=== PATIENT | female | born 1995 | race Caucasian/White ===

== ENCOUNTER 2016-06-13 20:37 | Emergency (ER) | payer OTHER ==
[2016-06-13 20:49] VITALS: BP 104/63; PULSE 76; TEMP 98.6; BMI 18.8
--- NOTE | 2016-06-13 20:53 | PDOC ---
History of Present Illness - General History Source: Patient Exam Limitations: No Limitations - History of Present Illness Initial Comments: 06/13/16 20:59 A portion of this note was documented by scribe services under my direction. I have reviewed the details of the note, within reason, and agree with the documentation. The case summary and management plan written by me. Assessment and plan: This is a 21-year-old female who comes in complaining of a lump in her right groin area. Patient otherwise is healthy denies any fevers or chills. Denies any abdominal pain or pelvic pain. Denies any vaginal discharge at this time. Patient said that she had a little bit of spotting a few days ago but none at this time. On exam patient did have a small right inguinal lymph node that was freely mobile and minimally tender. Patient was recommended that she follow-up with either her OB or [facility] if she couldn't get an appointment with her OB within the next week. Patient was told to take Tylenol or Motrin if needed for the pain. <Peter Araujo I - Last Filed: 06/13/16 20:59> - General History Source: Patient Exam Limitations: No Limitations - History of Present Illness Initial Comments: 06/13/16 21:03 The patient is a 21 year old female, with no significant past medical history who presents to the emergency department with a bump on her right pelvis area. She reports the bump is painful to touch. She reports having vaginal discharge about a week ago. She also notes abnormal bleeding the last week. She denies seeing her INTER COM SERVICER recently with her last pelvic exam over a year ago. She denies any [id number]-[id number] medication for pain relief. She denies recent fevers, chills, headache or dizziness. She denies recent nausea, vomit, diarrhea or constipation. She denies recent dysuria, frequency, urgency or hematuria. She denies recent chest pain or shortness of breath. PAST MEDICAL HISTORY: See HPI PAST SURGICAL HISTORY: No significant history. FAMILY HISTORY: No pertinent history. SOCIAL HISTORY: Patient lives with family and is employed. MEDICATIONS: Reviewed. ALLERGIES: As per nursing notes. ROS General: No fevers or chills, no weakness, no weight loss HEENT: No change in vision. No sore throat. No ear pain CardioVascular: No chest pain or shortness of breath Respiratory:No cough, or wheezing. Gastrointestinal: No nausea, vomiting, diarrhea or constipation. No rectal bleeding Genitourinary: No dysuria, hematuria, or frequency Musculoskeletal: +bump right pelvis area. No joint or muscle pain or swelling Neurologic: No headache, vertigo, dizziness or loss of consciousness Psychiatric: No depression Skin: No rashes or easy bruising Endocrine: no increased thirst or abnormal weight change Allergic: no skin or latex allergy All other systems reviewed and normal Exam: GENERAL: The patient is awake, alert, and fully oriented, in no acute distress. HEAD: Normal with no signs of trauma. EYES: Pupils equal, round and reactive to light, extraocular movements intact, sclera anicteric, conjunctiva clear. PELVIC: Small minimally tender lymph node right inguinal area approximately .5 cm in diameter also nontender small lymph node left lingual area approximately the same size. No erythema or any other lesions of the external genitalia. EXTREMITIES: Normal range of motion, no edema. NEUROLOGICAL: Normal speech, normal gait. PSYCH: Normal mood, normal affect. SKIN: Warm, Dry, normal turgor, no rashes or lesions noted. <Demetrio Laird - Last Filed: 06/13/16 21:03> - General Chief Complaint: Pain Stated Complaint: "I HAVE A BUMP ON MY R PELVIS AREA" Time Seen by Provider: 06/13/16 20:46 Past History - Psycho/Social/Smoking Cessation Hx Anxiety: No Suicidal Ideation: No Smoking History: Unknown if ever smoked Have you smoked in the past 12 months: No Number of Cigarettes Smoked Daily: 0 Information on smoking cessation initiated: No Hx Alcohol Use: No Drug/Substance Use Hx: No Substance Use Type: None <Peter Araujo I - Last Filed: 06/13/16 20:59> <Demetrio Laird - Last Filed: 06/13/16 21:03> - Past Medical History Allergies/Adverse Reactions: Allergies Allergy/AdvReac Type Severity Reaction Status Date / Time No Known Allergies Allergy Unverified 06/13/16 20:41 Home Medications: Ambulatory Orders NK [No Known Home Medication] 06/13/16 *Physical Exam - Vital Signs Last Vital Signs Temp Pulse Resp BP Pulse Ox 98.6 F 76 14 104/63 100 06/13/16 20:43 06/13/16 20:43 06/13/16 20:43 06/13/16 20:43 06/13/16 20:43 <Peter Araujo I - Last Filed: 06/13/16 20:59> - Vital Signs Last Vital Signs Temp Pulse Resp BP Pulse Ox 98.6 F 76 14 104/63 100 06/13/16 20:43 06/13/16 20:43 06/13/16 20:43 06/13/16 20:43 06/13/16 20:43 <Demetrio Laird - Last Filed: 06/13/16 21:03> *DC/Admit/Observation/Transfer - Discharge Dispostion Admit: No <Peter Araujo I - Last Filed: 06/13/16 20:59> - Attestations Scribe Attestion: 06/13/16 20:53 Documentation prepared by Demetrio Laird, acting as vp medical for Peter Araujo MD. <Demetrio Laird - Last Filed: 06/13/16 21:03> Diagnosis at time of Disposition: Inguinal lymphadenopathy - Discharge Dispostion Disposition: HOME Condition at time of disposition: Good - Patient Instructions Additional Instructions: Tylenol or Motrin as needed for the pain. Follow-up with your OB early next week if you're unable to get an appointment for early next week call [facility] tomorrow and get an appointment and see them instead. Return to the emergency department immediately with ANY new, persistent or worsening symptoms. Continue any medications as previously prescribed by your physician. You should follow up with your primary doctor as soon as possible regarding today's emergency department visit. . Please make sure your doctor reviews the results of your emergency evaluation. Thank you for coming to the Emergency Department today for your care. It was a pleasure to see you today. Please note that your evaluation is INCOMPLETE until you follow-up with your doctor.
== END 2016-06-13 21:04 | disposition home or self-care (01) ==
LOC: FER 20:37
DX: R59.0 Localized enlarged lymph nodes (principal)
CPT/HCPCS: 99282-25

== ENCOUNTER 2018-08-05 09:28 | Emergency (ER) | payer OTHER ==
[2018-08-05 09:41] VITALS: BP 100/60; PULSE 57; TEMP 98.9; BMI 19.2
--- NOTE | 2018-08-05 09:59 | PDOC ---
History of Present Illness <DanieltraviselverDeondre - Last Filed: 08/05/18 10:45> - General History Source: Patient Exam Limitations: No Limitations - History of Present Illness Initial Comments: 08/05/18 09:50 23 year old female with PMH genital herpes (2 outbreaks since diagnosis), chlamydia x2 (treated x2), ovarian cysts presented to ED for STI testing after having unprotected sex x3 days ago. Pt denied discharge, vaginal bleeding, pelvic pain, pain with intercourse, fever, chills, nausea, vomiting. Pt admitted to intermittent left pelvic/LLQ pain x3 weeks. She stated this pain feels similar to past pain associated with ovarian cysts. She stated she was evaluated by her OBGYN x3 weeks ago for the left sided pain, was told UA was negative. Allergies: NKDA <Jolie Deshpande - Last Filed: 08/07/18 09:50> - General Chief Complaint: Pain Stated Complaint: LOWER ABDOMINAL CRAMPING Time Seen by Provider: 08/05/18 09:31 Past History <EsteeDeondre - Last Filed: 08/05/18 10:45> - Past Medical History COPD: No Other medical history: RUPTURED OVARIAN CYST - Surgical History Appendectomy: Yes - Suicide/Smoking/Psychosocial Hx Smoking History: Never smoked Have you smoked in the past 12 months: No Number of Cigarettes Smoked Daily: 0 Hx Alcohol Use: No Drug/Substance Use Hx: No Substance Use Type: None <CharleeJolie - Last Filed: 08/07/18 09:50> - Past Medical History Allergies/Adverse Reactions: Allergies Allergy/AdvReac Type Severity Reaction Status Date / Time No Known Allergies Allergy Verified 08/05/18 09:29 Home Medications: Ambulatory Orders NK [No Known Home Medication] 06/13/16 Review of Systems - Review of Systems Able to Perform ROS?: Yes Comments:: 08/05/18 09:53 General: denied fever, chills, generalized weakness. HEENT: denied sore throat, rhinorrhea, ear pain. Heart: denied chest pain, palpitations, syncope, diaphoresis. Respiratory: denied shortness of breath, cough, sputum production, hemoptysis. Abdomen: admitted to abdominal pain. denied nausea, vomiting, diarrhea, constipation, blood in stool. : denied dysuria, increased urinary frequency, hematuria, urinary incontinence , flank pain. Back: denied back pain. Musculoskeletal: denied joint pain, muscle pain, joint swelling. Neurological: denied headache, dizziness, numbness, tingling, weakness. Skin: denied rash, laceration, abrasion. <Charlee,Jolie - Last Filed: 08/07/18 09:50> *Physical Exam - Vital Signs Last Vital Signs Temp Pulse Resp BP Pulse Ox 98.9 F 57 L 18 100/60 100 08/05/18 09:29 08/05/18 09:29 08/05/18 09:29 08/05/18 09:29 08/05/18 09:29 <Deondre Fontanez - Last Filed: 08/05/18 10:45> - Vital Signs Last Vital Signs Temp Pulse Resp BP Pulse Ox 98.9 F 57 L 18 100/60 100 08/05/18 09:29 08/05/18 09:29 08/05/18 09:29 08/05/18 09:29 08/05/18 09:29 - Physical Exam Comments: 08/05/18 09:59 Constitutional: Well-nourished, Well-developed, appearing stated age. HEENT: head is normocephalic, atraumatic. EOMI. PERRLA. Neck: supple. Full ROM. Heart: regular rhythm. no murmurs, rubs or gallops. Lungs: clear to auscultation bilaterally. no crackles, rhonchi or wheezing. no stridor. Abdomen: soft, nontender. normal bowel sounds. no rebound, guarding, masses. Extremities: peripheral pulses intact. no lower extremity edema. Neurological: CN 2-12 grossly intact. moves all four extremities. Psych: awake, alert, oriented x3. follows commands. answers questions appropriately. Pelvic: normal external genitalia. copious white discharge. inflammed cervix. cervical os closed. no CMT. no adnexal tenderness bilaterally. <Matthew Deshpandeyla - Last Filed: 08/07/18 09:50> ED Treatment Course - ADDITIONAL ORDERS Additional order review: Laboratory Results 08/05/18 09:44 Urine Color Yellow Urine Appearance Clear Urine pH 5.5 Urine Protein Negative Urine Glucose (UA) Negative Urine Ketones Negative Urine Blood Negative Urine Nitrite Negative Urine Bilirubin Negative Urine Urobilinogen 0.2 Ur Leukocyte Esterase Negative Urine HCG, Qual Negative - Medications Given in the ED: ED Medications Discontinued Medications Generic Name Dose Route Start Last Admin Trade Name Comfort PRN Reason Stop Dose Admin Azithromycin 1,000 mg 08/05/18 10:16 08/05/18 10:44 Zithromax PO 08/05/18 10:17 1,000 mg ONCE ONE Administration Ceftriaxone Sodium 250 mg 08/05/18 10:14 08/05/18 10:44 Rocephin - IM 08/05/18 10:15 250 mg ONCE ONE Administration Fluconazole 150 mg 08/05/18 10:31 08/05/18 10:44 Diflucan - PO 08/05/18 10:32 150 mg ONCE ONE Administration <Deondre Fontanez - Last Filed: 08/05/18 10:45> Medical Decision Making - Medical Decision Making 08/05/18 10:00 23 year old female with above PMH presented to ED for testing for STI's after having unprotected sex. She also complained of LLQ/adnexal pain x3 weeks. Initial Vital Signs Temp Pulse Resp BP Pulse Ox 98.9 F 57 L 18 100/60 100 08/05/18 09:29 08/05/18 09:29 08/05/18 09:29 08/05/18 09:29 08/05/18 09:29 Afebrile. Mild bradycardia. No tachypnea. Normal BP for age. No hypoxia on room air. Labs ordered: GC/Chlamydia NAAT, HIV, Hepatitis Panel, RPR Medications ordered: Ceftriaxone 250 mg IM once, Azithromycin 1g PO once, Diflucan 150 mg PO 08/05/18 10:30 Pt originally requested blood testing, then later declined. HIV/RPR/Hepatitis panel canceled. Pt informed seroconversaion may take up to six months and advised to follow up with testing outpatient. Urine Test Results Urine Color Yellow 08/05/18 09:44 Urine Appearance Clear 08/05/18 09:44 Urine pH 5.5 (4.5-8) 08/05/18 09:44 Urine Protein Negative (NEGATIVE) 08/05/18 09:44 Urine Glucose (UA) Negative (NEGATIVE) 08/05/18 09:44 Urine Ketones Negative (NEGATIVE) 08/05/18 09:44 Urine Blood Negative (NEGATIVE) 08/05/18 09:44 Urine Nitrite Negative (NEGATIVE) 08/05/18 09:44 Urine Bilirubin Negative (NEGATIVE) 08/05/18 09:44 Ur Leukocyte Esterase Negative (NEGATIVE) 08/05/18 09:44 No evidence of UTI. Urine testing negative. Call back placed for pt to be informed of GC/Chlamydia results. Pt discharged. <Jolie Deshpande - Last Filed: 08/07/18 09:50> *DC/Admit/Observation/Transfer <Deondre Fontanez - Last Filed: 08/05/18 10:45> - Discharge Dispostion Decision to Admit order: No <Jolie Deshpande - Last Filed: 08/07/18 09:50> Diagnosis at time of Disposition: Vaginal carey - Discharge Dispostion Disposition: HOME Condition at time of disposition: Stable - Referrals Referrals: Jacob Acharya MD [Staff Physician] - - Patient Instructions Printed Discharge Instructions: DI for Gonorrhea, DI for Chlamydia, DI for Vaginal Yeast Infection Additional Instructions: Activity as tolerated. Stay hydrated. A urinalysis today showed no urine infection and a negative test. A pelvic exam showed evidence of a yeast infection, which was treated. We sent off gonorrhea and chlamydia cultures, the results will be available in 2-3 days. You were treated for gonorrhea and chlamydia in the emergency department. Tylenol 1000 mg every 8 hours and/or ibuprofen 600 mg every 8 hours as needed for pain. You should follow up with your MANAGER ENGAGEMENT. If your pelvic pain continues, consider an ultrasound. You should follow up with your primary doctor and MANAGER ENGAGEMENT as soon as possible regarding today's emergency department visit. Return to the emergency department for any new or concerning symptoms, particularly worsening pain, fevers or chills, bleeding or discharge. - Post Discharge Activity Forms/Work/School Notes: Back to Work
[2018-08-05 10:05] LABS: HCG,QUALITATIVE URINE Negative
[2018-08-05] MEDS ORDERED: AZITHROMYCIN 500 MG TABLET PO ONE (10:16)
[2018-08-05] MEDS ORDERED: FLUCONAZOLE 50 MG TABLET PO ONE (10:31)
--- NOTE | 2018-08-05 10:32 | PDOC ---
Attending Attestation - Resident Resident Name: Jolie Deshpande - ED Attending Attestation I have performed the following: I have examined & evaluated the patient, The case was reviewed & discussed with the resident, I agree w/resident's findings & plan - HPI HPI: 08/05/18 10:27 Healthy 23-year-old female presents for evaluation of STI. Patient has history of bacterial vaginosis 1 and chlamydia 2, all treated in the past. Also has history of ovarian cysts, LMP /. Patient has had 3 weeks of mild groin/ pelvic discomfort without noticeable discharge or bleeding other than her menses , saw her PCP at the onset of these symptoms and was treated with abx for UTI. Presents today because she had unprotected sex with an acquaintance 3 days ago, has no new symptoms but in the setting of her pelvic pain she presents for STI screening. Denies any sexual abuse or assault, denies any abdominal pain/fever/chills/ dysuria/hematuria/back pain/weight loss/night sweats. - Physicial Exam PE: 08/05/18 10:30 Vital signs normal, afebrile, urine negative Well-appearing, ambulating comfortably Heart is regular, lungs are clear Abdomen is soft/nondistended/nontender. Healed surgical incisional scar along the lower abdomen ( and abdominoplasty) No CVA tenderness Pelvic per resident notable for white discharge, no cmt/adnexal ttp No rash - Medical Decision Making 08/05/18 10:32 23-year-old female for evaluation of STI and the setting of unprotected intercourse, abdominal exam benign with normal vital signs but positive discharge on pelvic exam. Possible yeast infection, will treat empirically for GC/chlamydia. Offered full exposure testing, but patient refused. GC and chlamydia culture sent Urinalysis clear, urine negative No evidence of PID on exam, we'll defer imaging Treat empirically for GC and chlamydia, treat vaginal candidiasis Understands return criteria
[2018-08-05] MEDS ORDERED: FLUCONAZOLE 150 MG TABLET PO ONE (10:37)
[2018-08-05] MEDS ORDERED: AZITHROMYCIN 250 MG TABLET ONE (10:38)
== END 2018-08-05 10:50 | disposition home or self-care (01) ==
LOC: FER 09:28
DX: B37.3 Candidiasis of vulva and vagina (principal); Z87.42 Personal history of other diseases of the female genital tract; N83.209 Unspecified ovarian cyst, unspecified side
CPT/HCPCS: 36415; 81003; 81025; 84703; 87491; 87591; 96372; 99283-25

== ENCOUNTER 2018-10-26 23:52 | Emergency (ER) | payer OTHER | END 2018-10-27 00:32 | disposition home or self-care (01) | LOC: FER 23:52 ==

== ENCOUNTER 2018-12-10 22:08 | Emergency (ER) | payer OTHER ==
[2018-12-10 22:15] VITALS: BP 114/64; PULSE 95; TEMP 99; BMI 20.5
--- NOTE | 2018-12-11 00:32 | PDOC ---
*Physical Exam - Vital Signs Last Vital Signs Temp Pulse Resp BP Pulse Ox 99 F 95 H 18 114/64 98 12/10/18 22:13 12/10/18 22:13 12/10/18 22:13 12/10/18 22:13 12/10/18 22:13 Medical Decision Making - Medical Decision Making 12/11/18 00:31 Patient seen by the advanced practice provider under my direct supervision. Ancillary testing reviewed as necessary. I agree with plan as outlined by the advanced practice provider. *DC/Admit/Observation/Transfer Diagnosis at time of Disposition: Headache Qualifiers: Headache type: other headache syndrome Qualified Code(s): G44.89 - Other headache syndrome - Discharge Dispostion Disposition: HOME Condition at time of disposition: Stable - Referrals Referrals: Farhana Oneil MD [Primary Care Provider] - 2 Days - Patient Instructions Printed Discharge Instructions: DI for Headache Additional Instructions: Thank you for choosing [facility]. It was a pleasure taking care of you. Please follow-up with your eye doctor as you likely need glasses Also recommend you follow-up with your regular doctor in 2 days Return to the Emergency Department if your symptoms worsen or persist, you have fever, vomiting, weakness of extremities (arms and/or legs), changes in vision or walking or other concerning symptoms. - Post Discharge Activity
--- NOTE | 2018-12-11 00:51 | PDOC ---
History of Present Illness - General Chief Complaint: Headache Stated Complaint: PAIN Time Seen by Provider: 12/11/18 00:27 History Source: Patient Exam Limitations: No Limitations Past History - Past Medical History Allergies/Adverse Reactions: Allergies Allergy/AdvReac Type Severity Reaction Status Date / Time No Known Allergies Allergy Verified 10/26/18 23:54 Home Medications: Ambulatory Orders Acyclovir [Zovirax -] 400 mg PO TID #21 tablet 10/27/18 COPD: No - Surgical History Appendectomy: Yes - Suicide/Smoking/Psychosocial Hx Smoking History: Never smoked Have you smoked in the past 12 months: No Number of Cigarettes Smoked Daily: 0 Hx Alcohol Use: No Drug/Substance Use Hx: No Substance Use Type: None *Physical Exam - Vital Signs Last Vital Signs Temp Pulse Resp BP Pulse Ox 99 F 95 H 18 114/64 98 12/10/18 22:13 12/10/18 22:13 12/10/18 22:13 12/10/18 22:13 12/10/18 22:13 - Physical Exam General Appearance: No: Apparent Distress HEENT: positive: EOMI, JENN, Other (no pain on eye movements, eyes not injected , no temporal artery tenderness, vision 20/40 R eye, 20/20 L eye, 20/20 both eyes, vision 20/20 R eye with pinhole ) Neck: positive: Supple Respiratory/Chest: positive: Lungs Clear, Normal Breath Sounds. negative: Respiratory Distress Cardiovascular: positive: Regular Rhythm, Regular Rate, S1, S2. negative: Murmur Neurologic: positive: compensation administrator II-XII NML intact, Fully Oriented, Alert, Normal Mood/ Affect, Motor Strength 5/5. negative: Facial Droop, Sensory Deficit, Confused, Disoriented Medical Decision Making - Medical Decision Making 23 y/o F with no sig pmh presents with intermittent, sharp L temporal GONZALEZ x 5 days. Has not tried taking anything for pain as she does not like pain meds. Nothing makes GONZALEZ better or worse. Currently states, is not having the headache. Also feels her vision has been more blurred. Mentions she does not have good vision and was told by eye doctor in the past that she needs glasses but never got them. Denies vomiting, fever, URI sxs, sob, cp, abd pain, numbness/tingling/ weakness of extremities, dizziness. Patient was concerned as states her aunt and uncle had brain aneurysm and wanted to know if that was cause of symptoms. Currently no GONZALEZ Explained to patient that sxs unlikely related to brain aneurysm Given improvement of vision with pinhole, suspect need for glasses stable for dc 12/11/18 00:46 *DC/Admit/Observation/Transfer Diagnosis at time of Disposition: Headache Qualifiers: Headache type: other headache syndrome Qualified Code(s): G44.89 - Other headache syndrome - Discharge Dispostion Disposition: HOME Condition at time of disposition: Stable Decision to Admit order: No - Referrals Referrals: Farhana Oneil MD [Primary Care Provider] - 2 Days - Patient Instructions Printed Discharge Instructions: DI for Headache Additional Instructions: Thank you for choosing [facility]. It was a pleasure taking care of you. Please follow-up with your eye doctor as you likely need glasses Also recommend you follow-up with your regular doctor in 2 days Return to the Emergency Department if your symptoms worsen or persist, you have fever, vomiting, weakness of extremities (arms and/or legs), changes in vision or walking or other concerning symptoms. - Post Discharge Activity
== END 2018-12-11 01:18 | disposition home or self-care (01) ==
LOC: JER 22:08
DX: G44.89 Other headache syndrome (principal)
CPT/HCPCS: 99281-25

== ENCOUNTER 2024-03-23 03:00 | Inpatient (IN) | payer BC, OTHER ==
[2024-03-23] MEDS: LACTATED RINGERS SOLUTION 1,000 ML IV SCH (04:10)
[2024-03-23 04:55] LABS: INR 0.87 (0.83-1.09); PROTHROMBIN TIME (PATIENT) 10.1 SEC (9.7-13.0)
[2024-03-23 04:57] LABS: POTASSIUM 3.8 mmol/L (3.5-5.1)
[2024-03-23 04:58] LABS: ACTIVATED PTT 25.8 SECONDS (25.2-36.5); CALCIUM 9.4 mg/dL (8.5-10.1)
[2024-03-23 05:00] LABS: BASO % 0.8 % (0-2.0); EOS % 0.5 % (0-4.5); HEMATOCRIT 35.9 % (32.4-45.2); HEMOGLOBIN 11.5 GM/dL (10.7-15.3); LYMPH % 26.8 % (8-40); MCH 25.7 pg (25.7-33.7); MCHC 31.9 g/dl (32.0-36.0); MEAN CELL VOLUME 80.6 fl (80-96); MEAN PLT VOLUME 8.7 fl (7.5-11.1); MONO % 9.1 % (3.8-10.2); NEUT % 62.8 % (42.8-82.8); PLATELET COUNT 248 10^3/uL (134-434); RBC 4.45 M/mm3 (3.60-5.2); RDW 15.2 % (11.6-15.6); WHITE BLOOD COUNT 11.2 K/mm3 (4.0-10.0)
[2024-03-23 05:02] LABS: CREATININE 0.7 mg/dL (0.55-1.3)
[2024-03-23 05:55] LABS: HIV INTERPRETATION NEGATIVE (NEGATIVE)
[2024-03-23 05:59] VITALS: BMI 25.7
[2024-03-23] MEDS: ELECTROLYTE-148 SOLN 1,000 ML IV ONE (08:00)
[2024-03-23] MEDS ORDERED: morphine SULFATE/PF 1 MG/2 ML (2cc Syringe - QUVA) ONE (08:26)
[2024-03-23] MEDS ORDERED: FENTANYL CITRATE/PF 50 MCG/ML VIAL ONE (08:26)
[2024-03-23] MEDS: CITRIC ACID/SODIUM CITRATE 30 ML UNIT-DOSE CUP PO ONE (08:28)
[2024-03-23] MEDS ORDERED: DEXAMETHASONE SOD PHOSPHATE 4 MG/1 ML VIAL ONE (09:16)
[2024-03-23] MEDS ORDERED: KETOROLAC TROMETHAMINE 30 MG/1 ML VIAL ONE (09:16)
[2024-03-23] MEDS ORDERED: OXYTOCIN 10 UNITS/ML VIAL ONE (09:16)
[2024-03-23] MEDS ORDERED: ONDANSETRON 4 MG/2 ML VIAL ONE (09:16)
[2024-03-23] MEDS ORDERED: ONDANSETRON 4 MG/2 ML VIAL IVPB PRN (09:44)
[2024-03-23] MEDS ORDERED: OXYTOCIN 20 UNITS in 0.9% NS 20 UNIT/1,000 ML INFUS.BAG IV ONE (10:07)
[2024-03-23] MEDS: OXYTOCIN 20 UNITS in 0.9% NS 20 UNIT/1,000 ML INFUS.BAG IV SCH (10:08)
[2024-03-23] MEDS ORDERED: ACETAMINOPHEN INJECTION 100 ML ONE (12:14)
[2024-03-23] MEDS: ACETAMINOPHEN 1000 MG/100 ML BAG IVPB SCH (12:15)
[2024-03-23] MEDS: IBUPROFEN 800 MG/8 ML IJ IVPB SCH (17:54)
[2024-03-23] MEDS: SENNOSIDES/DOCUSATE COMBO (SENNA PLUS) TABLET (UD) PO SCH (22:05)
[2024-03-24] MEDS: ACETAMINOPHEN 1000 MG/100 ML BAG IVPB SCH (00:20)
[2024-03-24] MEDS: PRENATAL VITAMINS W/ FOLIC ACID TABLET (FP) PO SCH (00:40)
[2024-03-24 01:54] VITALS: RESP 18
[2024-03-24 07:12] LABS: BASO % 0.3 % (0-2.0); EOS % 0.7 % (0-4.5); HEMATOCRIT 34.2 % (32.4-45.2); HEMOGLOBIN 10.6 GM/dL (10.7-15.3); LYMPH % 16.1 % (8-40); MCH 25.2 pg (25.7-33.7); MCHC 30.9 g/dl (32.0-36.0); MEAN CELL VOLUME 81.5 fl (80-96); MEAN PLT VOLUME 8.7 fl (7.5-11.1); MONO % 6.7 % (3.8-10.2); NEUT % 76.2 % (42.8-82.8); PLATELET COUNT 234 10^3/uL (134-434); RBC 4.19 M/mm3 (3.60-5.2); RDW 15.5 % (11.6-15.6); WHITE BLOOD COUNT 15.3 K/mm3 (4.0-10.0)
[2024-03-24] MEDS: ACETAMINOPHEN 325 MG TABLET (FP) PO PRN (09:12)
[2024-03-24] MEDS: SIMETHICONE 80 MG TAB.CHEW (FP) PO PRN (09:13)
[2024-03-24] MEDS ORDERED: BISACODYL 10 MG SUPP.RECT RC PRN (09:44)
[2024-03-24] MEDS: IBUPROFEN 600 MG TABLET (FP) PO PRN (15:37)
[2024-03-25] MEDS: oxyCODONE HCL 5 MG TABLET PO PRN (03:33)
[2024-03-25] MEDS: ELECTROLYTE-148 SOLN 1,000 ML IV SCH (07:36)
[2024-03-25 09:37] VITALS: BP 102/54; PULSE 89; TEMP 98.8
== END 2024-03-25 13:18 | disposition home or self-care (01) | DRG 788 ==
LOC: JDEL 03:00 → JLDR 05:15 → J3W 12:40
PROVIDERS: ADMIT Specialist; ATTEND Specialist
PROC: 10D00Z1 Extraction of Products of Conception, Low, Open Approach (ICD-10-PCS; principal; 2024-03-23)
DX: O34.219 Maternal care for unspecified type scar from previous cesarean delivery (principal); O42.92 Full-term premature rupture of membranes, unspecified as to length of time between rupture and onset of labor; Z3A.38 38 weeks gestation of pregnancy; Z37.0 Single live birth
CPT/HCPCS: 36415; 59409; 80048; 85025; 85610; 85730; 86780; 86850; 86900; 86901; 87389; 88307-TC; 94010; J0131